=== PATIENT | male | born 2000 | race Hispanic/Latino ===

== ENCOUNTER 2023-12-31 16:05 | Emergency (ER) | payer OTHER ==
[2023-12-31 19:04] LABS: #Basophils 0.03 10x3/uL (0.0-0.2); %Basophils 0.2 % (0.0-1.0); %Eosinophils 0.3 % (0.0-10.0); %Lymphocytes 12.1 % (21.0-51.0); %Monocytes 3.9 % (0.0-10.0); %Neutrophils 83.2 % (42.0-75.0); Hematocrit 47.9 % (42.0-52.0); Hemoglobin 16.1 g/dL (14.0-18.0); Mean Corpuscular HGB CONC 33.6 g/dL (32.0-36.0); Mean Corpuscular Hemoglobin 29.6 pg (27.0-31.0); Mean Corpuscular Volume 88.1 fL (78.0-98.0); Mean Platelet Volume 12.9 fL (7.4-10.4); Platelet Count 237 10x3/uL (130-400); RBC Distribution Width 14.1 % (11.5-14.5); Red Blood Cell (RBC) Count 5.44 mill/uL (4.70-6.10)
[2023-12-31 19:18] LABS: ALT (SGPT) 77 U/L (8-55); AST (SGOT) 48 U/L (5-34); Albumin 5.3 g/dL (3.5-5.0); Alkaline Phosphatase 80 U/L (40-110); Anion Gap 20 mmol/L (10-20); BUN (Urea Nitrogen) 21 mg/dL (8.9-20.6); Calc. Creatinine Clearance 0 mL/min (70-130); Calcium 11.3 mg/dL (7.8-10.44); Carbon Dioxide 21 mmol/L (22-29); Chloride 98 mmol/L (98-107); Estimated GFR 43; Globulin 4.3 g/dL (2.4-3.5); Glucose 114 mg/dL (70-105); Potassium 4.3 mmol/L (3.5-5.1); Protein, Total 9.6 g/dL (6.0-8.3); Sodium 135 mmol/L (136-145)
[2023-12-31] MEDS ORDERED: HYDROcodone/Acetaminophen 10/325 mg Tablet ONE (19:43)
== END 2023-12-31 20:39 | disposition home or self-care (01) ==
LOC: ERS 16:05
DX: T67.5XXA Heat exhaustion, unspecified, initial encounter (principal); N17.9 Acute kidney failure, unspecified
CPT/HCPCS: 36415; 80053; 82550; 85025; 93005; 96360